=== PATIENT | male | born 1965 | race Caucasian/White ===

== ENCOUNTER 2018-01-08 07:54 | Day surgery (SDC) ==
[2018-01-08] MEDS ORDERED: LIDOCAINE 1%/PHENYLEPHRINE 1.5% BSS (SURGERY) INTRAOCULA ONE (08:59)
[2018-01-08] MEDS ORDERED: BRIMONIDINE TARTRATE 0.2% OPTH SOL OP PRN (08:59)
[2018-01-08] MEDS ORDERED: BSS WITH EPINEPHRINE OP ONE (08:59)
[2018-01-08] MEDS ORDERED: DEX-MOXI-KETOR OPTH INJ 1/0.5/0.4 MG/ML IO ONE (08:59)
[2018-01-08] MEDS ORDERED: LIDOCAINE 1% 20 ML MDV ID STA (08:59)
[2018-01-08] MEDS ORDERED: ZOFRAN 4 MG/2 ML IVP ONE (08:59)
[2018-01-08] MEDS: BETADINE OPTH PREP OP PRN ×2 (09:00→09:28)
[2018-01-08] MEDS: TETRACAINE 0.5% UNIT-DOSE OP PRN ×2 (09:00→09:28)
[2018-01-08] MEDS: CYCLOGYL 2% OPTH OP PRN ×3 (09:01→09:11)
[2018-01-08 09:11] VITALS: TEMP 98.4
[2018-01-08] MEDS ORDERED: SUBLIMAZE ONE (09:35)
[2018-01-08] MEDS ORDERED: ZOFRAN 4 MG/2 ML ONE (09:35)
[2018-01-08] MEDS ORDERED: VERSED ONE (09:35)
[2018-01-10 08:54] VITALS: BP 128/78
== END 2018-01-08 10:50 | disposition home or self-care (01) ==
LOC: SURG 07:54
PROVIDERS: ATTEND Ophthalmology
DX: H25.811 Combined forms of age-related cataract, right eye (principal)